=== PATIENT | female | born 1980 | race Two or more races ===

== ENCOUNTER 2020-03-11 07:16 | Emergency (ER) | payer OTHER ==
[~2020-03-11] VITALS: Ht 152.4 cm; Wt 75.3 kg
== END 2020-03-11 13:31 | disposition home or self-care (01) ==
LOC: ER 07:16
DX: N39.0 Urinary tract infection, site not specified (principal); N93.8 Other specified abnormal uterine and vaginal bleeding

== ENCOUNTER 2020-06-10 12:56 | Emergency (ER) | payer OTHER ==
[~2020-06-10] VITALS: Ht 167.6 cm; Wt 74.4 kg
[2020-06-10] MEDS ORDERED: FLAGYL500MG PO (18:28)
[2020-06-10] MEDS ORDERED: LEVSIN/SL0.125 MG SL (18:28)
[2020-06-10] MEDS ORDERED: PEPCID AC20 MG PO (18:28)
[2020-06-10] MEDS ORDERED: CIPRO500 MG PO (18:28)
== END 2020-06-10 20:00 | disposition home or self-care (01) ==
LOC: ER 12:56
DX: K62.5 Hemorrhage of anus and rectum (principal)

== ENCOUNTER 2020-06-22 09:49 | Emergency (ER) | payer OTHER ==
[~2020-06-22] VITALS: Ht 167.6 cm; Wt 74.4 kg
[~2020-06-22 09:49] MED LIST: CIPRO500 MG PO; FLAGYL500MG PO; LEVSIN/SL0.125 MG SL; PEPCID AC20 MG PO
[2020-06-22] MEDS ORDERED: ZITHROMAX500 MG PO (14:17)
== END 2020-06-22 16:29 | disposition home or self-care (01) ==
LOC: ER 09:49
DX: K52.89 Other specified noninfective gastroenteritis and colitis (principal); B96.0 Mycoplasma pneumoniae [M. pneumoniae] as the cause of diseases classified elsewhere; Z03.818 Encounter for observation for suspected exposure to other biological agents ruled out

== ENCOUNTER → 2020-07-20 | Emergency (ER) | payer OTHER ==
[~2020-07-20] VITALS: Ht 167.6 cm; Wt 74.4 kg
[~2020-07-20] MED LIST changes: +BACTRIM DS TAB1 EACH PO; +ZITHROMAX500 MG PO
== END | disposition home or self-care (01) ==
LOC: ER 09:21
DX: K29.70 Gastritis, unspecified, without bleeding (principal); N39.0 Urinary tract infection, site not specified

== ENCOUNTER 2020-12-17 08:42 | Emergency (ER) | payer OTHER ==
[~2020-12-17] VITALS: Ht 167.6 cm; Wt 78.0 kg
== END 2020-12-17 13:14 | disposition home or self-care (01) ==
LOC: ER 08:42
DX: K52.9 Noninfective gastroenteritis and colitis, unspecified (principal)

== ENCOUNTER 2021-02-03 06:52 | Emergency (ER) | payer OTHER ==
[~2021-02-03] VITALS: Ht 167.6 cm; Wt 75.7 kg
== END 2021-02-03 10:37 | disposition home or self-care (01) ==
LOC: ER 06:52
DX: R21 Rash and other nonspecific skin eruption (principal)

== ENCOUNTER 2021-02-27 06:52 | Emergency (ER) | payer OTHER ==
[~2021-02-27] VITALS: Ht 167.6 cm; Wt 75.3 kg
[2021-02-27] MEDS ORDERED: FEROSUL325 MG PO (07:26)
[2021-02-27] MEDS ORDERED: OPTIMAL D31250 MCG PO (07:26)
[2021-02-27] MEDS ORDERED: FOLIC ACID0.8 M1 PO (07:26)
== END 2021-02-27 10:19 | disposition home or self-care (01) ==
LOC: ER 06:52
DX: R51.9 Headache, unspecified (principal)